=== PATIENT | female | born 1975 | race Caucasian/White ===

== ENCOUNTER 2023-09-12 09:14 | Emergency (ER) | payer MEDICARE, OTHER ==
[~2023-09-12] VITALS: Ht 170.2 cm; Wt 87.2 kg
[2023-09-12] MEDS ORDERED: CYMB1CAP5 PO (09:31)
[2023-09-12] MEDS ORDERED: CYMB1CAP4 PO (09:31)
[2023-09-12] MEDS: NS 1,000 ML IV ONE (12:48)
[2023-09-12 13:12] LABS: BASO % 0.5 % (0.0-1.0); EOS # 0.1 10^3/uL (0.0-0.5); EOS % 1.3 % (0.0-3.0); HEMATOCRIT 41.3 % (36.0-47.0); HEMOGLOBIN 14.1 g/dl (12.0-15.5); LYMPH # 2.6 10^3/uL (1.5-5.0); LYMPH % 41.8 % (24.0-44.0); MEAN CORPUSCULAR HEMOGLOBIN 32.4 pg (27.0-33.0); MEAN CORPUSCULAR HGB CONC 34.1 g/dl (32.0-36.5); MEAN CORPUSCULAR VOLUME 94.9 fl (80.0-96.0); MONO # 0.3 10^3/uL (0.0-0.8); MONO % 5.5 % (2.0-8.0); NEUTROPHILS # 3.1 10^3/uL (1.5-8.5); NEUTROPHILS % 50.7 % (36.0-66.0); PLATELET COUNT, AUTOMATED 211 10^3/uL (150-450); RED BLOOD COUNT 4.35 10^6/uL (4.00-5.40); WHITE BLOOD COUNT 6.2 10^3/uL (4.0-10.0)
[2023-09-12 13:26] LABS: C REACTIVE PROTEIN QUANTITATIV < 0.40 MG/DL (<1.0); ERYTHROCYTE SEDIMENTATION RATE 5 mm/hr (0-20)
[2023-09-12 13:28] LABS: ALKALINE PHOSPHATASE 55 U/L (46-116); ALT/SGPT 17 U/L (7.0-40); AST/SGOT 31 U/L (<34); BILIRUBIN,DIRECT 0.2 MG/DL (<0.4); BILIRUBIN,TOTAL 0.8 MG/DL (0.3-1.2); BLOOD UREA NITROGEN 11 MG/DL (9-23); CALCIUM LEVEL 8.6 MG/DL (8.5-10.1); CARBON DIOXIDE LEVEL 26 MMOL/L (20-31); CHLORIDE LEVEL 110 MMOL/L (98-107); CREATININE FOR GFR 0.58 MG/DL (0.55-1.30); GLOMERULAR FILTRATION RATE > 60.0 (>58); GLUCOSE, FASTING 77 MG/DL (60-100); POTASSIUM SERUM 4.4 MMOL/L (3.5-5.1); SODIUM LEVEL 140 MMOL/L (136-145); TOTAL PROTEIN 6.7 G/DL (5.7-8.2)
[2023-09-12 13:29] LABS: INR 0.96; PARTIAL THROMBOPLASTIN TIME 31.4 SECONDS (24.8-34.2); PROTHROMBIN TIME 12.5 SECONDS (12.5-14.5)
[2023-09-12] MEDS: MORPHINE 4 MG/ML 1ML VIAL IV ONE (14:10)
[2023-09-12] MEDS: GABAPENTIN 300 MG CAP PO ONE (14:11)
[2023-09-12 14:17] VITALS: TEMP 97.7
[2023-09-12] MEDS ORDERED: NEUR300C PO (14:18)
[2023-09-12] MEDS ORDERED: DOXY150T6 PO (14:22)
[2023-09-12] MEDS ORDERED: LYRI150C PO (14:22)
[2023-09-12 14:46] LABS: FREE T4 0.79 NG/DL (0.89-1.76)
[2023-09-12 14:47] LABS: THYROID STIMULATING HORMONE 2.242 uIU/ML (0.55-4.78)
[2023-09-12] MEDS ORDERED: HYDR-3713 PO (14:52)
[2023-09-12] MEDS ORDERED: NEUR600T PO (14:52)
[2023-09-12 15:14] VITALS: BP 203/103
[2023-09-12] MEDS: KETOROLAC 30 MG/ML 1ML VIAL IV ONE (15:32)
[2023-09-12] MEDS: PERCOCET 5MG/325MG TAB PO ONE (16:35)
[2023-09-12 18:04] VITALS: O2SAT 99
== END 2023-09-12 18:06 | disposition home or self-care (01) ==
LOC: M ED 09:14
DX: M54.81 Occipital neuralgia (principal); F43.10 Post-traumatic stress disorder, unspecified; M06.9 Rheumatoid arthritis, unspecified; M19.90 Unspecified osteoarthritis, unspecified site; F17.200 Nicotine dependence, unspecified, uncomplicated; F12.10 Cannabis abuse, uncomplicated; Z98.84 Bariatric surgery status; Z88.1 Allergy status to other antibiotic agents; Z88.8 Allergy status to other drugs, medicaments and biological substances; Z79.1 Long term (current) use of non-steroidal anti-inflammatories (NSAID); Z79.891 Long term (current) use of opiate analgesic; Z79.899 Other long term (current) drug therapy
CPT/HCPCS: 70450; 80048; 80076; 83735; 84439; 84443; 85025; 85610; 85652; 85730; 86140; 96361; 96374; 96375; 99284; J1885